=== PATIENT | female | born 1985 | race Caucasian/White ===

== ENCOUNTER 2023-01-26 12:14 | Outpatient (CLI) | payer OTHER ==
[~2023-01-26 12:14] MED LIST: iohexoL 240 mgI/mL, 50 ML INFUS..BTL IV ONE
[2023-01-26] MEDS ORDERED: iohexoL 240 mgI/mL, 50 ML INFUS..BTL IV ONE (13:13)
[2023-01-27 07:07] LABS: FOLLICLE STIMULATION HORMONE 4.7 mIU/mL (.); LUETENIZING HORMONE 5.8 mIU/mL (.)
== END 2023-01-26 18:13 | disposition home or self-care (01) ==
LOC: SRD 12:14
PROVIDERS: ATTEND Specialist
DX: N92.6 Irregular menstruation, unspecified (principal)
CPT/HCPCS: 74740; 83037; 84443; 36415 ×2; 58340; 82627; 82670; 83001; 83002; 83525; 84146; Q9966; Q9967